=== PATIENT | female | born 1965 | race Caucasian/White ===

== ENCOUNTER → 2017-01-27 | Outpatient (CLI) | payer OTHER ==
[~2017-01-27] MED LIST: ACETAMINOPHEN PO; ALBUTEROL20 ml INH; AMITRYPTYLINE; AMOXICILLIN PO; APRESOLINE; ASPIRIN81 MG; ASPIRIN81 MG PO; AVAPRO PO; BENADRYL25 M1; BENADRYL25 M1 PO; BREO ELLIPTA 21 EACH; CATAPRES0.3 MG; CELEXA20 MG; CLONIDINE HCL0.3 MG PO; CLONIDINE PO; DOCU SOFT100 M1 PO; FLONASE ALLERG9.9 ML; GABAPENTIN400 MG PO; GABAPENTIN800 MG PO; HYDRALAZINE HCL25 MG PO; IBUPROFEN200 M1; K-DUR10 MEQ PO; KLONOPIN1 MG; LOPRESSOR PO; MAXZIDE 75-501 EACH; METOPROLOL SUC100 MG PO; MILK OF MAGNESIA PO; MOBIC15 MG PO; MOTRIN600 M1 PO; NAMENDA5 MG PO; NEPHROCAPS1 CAP; NEURONTIN; NICOTINE PATCH1 BOX TD; OXYCODONE HCL10 M1 PO; PAROXETINE HCL20 MG PO; PEPCID AC20 M2 PO; PROTONIX PO; SIMVASTATIN20 MG PO; SYMBICORT 160/4.6 G1 INH; TOPROL XL100 MG; TRAMADOL HCL50 M1; TRIAMTERENE-HC1 EACH PO; VITAMIN B122500 MCG; VITAMIN D250000 UNIT PO; ZANAFLEX4 M1 PO; ZANTAC PO; ZOCOR10 MG PO
--- NOTE | ~2017-01-27 | MY6 ---
[facility] A Service of [facility] & [facility] RADIOLOGY TEXT RESULTS PATIENT: JAMMIE CHANCE LOCATION: [facility] : 63 UNIT #: [id number] AGE: [address]: Ismael Todd MD SEX: F ORDER DR: [id number] [facility] [address] [place], [place] [address] [id number] O MR#: [id number] Acc #: [id number] NAME: JAMMIE CHANCE : 1965 SEX: F STUDY DATE/TIME: 01/27/2017 10:54 UNIT: [facility] ROOM: STUDY DESCRIPTION: MY Mammogram Dx Dig Jarett Attending Physician: Ismael Todd M.D. Ordering Physician: Ismael Todd M.D. Primary Care Physician: Ismael Todd M.D. MEDICAL IMAGING REPORT This report is preliminary unless electronic signature is present EXAM Bilateral digital diagnostic mammogram. COMPARISON Left diagnostic mammogram dated March 10, 2016, September 08, 2015, and screening mammogram dated August 07, 2015. INDICATION 52-year-old female with 4 probably benign clusters of left breast microcalcifications. 6-month followup was recommended but the patient is just now returning for followup. FINDINGS Spot magnification ML and CC views were obtained in addition to full field bilateral CC and MLO views. There are scattered fibroglandular densities. There are 2 clusters of round and punctate microcalcifications in the 12 o'clock posterior third of the left breast, as well as a separate cluster of 11 o'clock posterior third round and punctate microcalcifications. These are stable. There are also stable round and punctate microcalcifications in the 9 o'clock middle third of the left breast. There are no suspicious findings in the right breast. IMPRESSION 1. No mammographic evidence of malignancy in the right breast. 2. 4 stable probably benign clusters of left breast microcalcifications. Follow up left diagnostic mammogram is recommended in 6 months to document overall 2-year stability. Findings and recommendations were discussed with the patient upon termination of today's exam. Patients over the age of 40 are entered into a reminder system with target due date for the next mammogram. A result letter will also be sent to the patient. [facility] A Service of [facility] & [facility] RADIOLOGY TEXT RESULTS PATIENT: JAMMIE CHANCE LOCATION: [facility] : 63 UNIT #: [id number] AGE: [address]: Ismael Todd MD SEX: F ORDER DR: BIRADS: 3 Probably benign finding; short interval follow-up suggested. Dictated by... Jake Melendrez M.D. THIS IS AN ELECTRONICALLY VERIFIED REPORT Jake Melendrez M.D. at 01/30/2017 9:24 AM HUBERT/howard TD: 01/27/2017 15:25 JOB #: [id number] MEDICAL IMAGING REPORT COPY
== END | disposition home or self-care (01) ==
LOC: CMAM 10:15
DX: R92.0 Mammographic microcalcification found on diagnostic imaging of breast (principal); R92.1 Mammographic calcification found on diagnostic imaging of breast
CPT/HCPCS: G0204

== ENCOUNTER → 2017-02-27 | Outpatient (CLI) | payer OTHER ==
--- NOTE | ~2017-02-27 | US37 ---
[facility] A Service of [facility] RADIOLOGY TEXT RESULTS PATIENT: JAMMIE CHANCE LOCATION: [facility] : 63 UNIT #: [id number] AGE: [address]: VERONICA AYERS APRN SEX: F ORDER DR: [id number] [facility] [address] [place], [place] [address] [id number] O MR#: [id number] Acc #: [id number] NAME: JAMMIE CHANCE. : 1965 SEX: F STUDY DATE/TIME: 02/27/2017 10:33 UNIT: [facility] ROOM: STUDY DESCRIPTION: US Carotid W/Doppler Bilateral Attending Physician: Veronica Ayers Aprn Referring Physician: Veronica Ayers Aprn Ordering Physician: Veronica Ayers Aprn Primary Care Physician: Ismael Todd M.D. MEDICAL IMAGING REPORT This report is preliminary unless electronic signature is present EXAM Bilateral carotid duplex DATE OF EXAMINATION 02/27/2017 HISTORY Atherosclerosis. FINDINGS High resolution B-mode and duplex imaging of the carotid arteries was performed. The right common carotid artery is patent. The right internal and external carotid arteries are patent with no significant plaque. Velocity in the right common carotid is 61, internal is 62, and external is 76 cm/sec. Right ICA/CCA Ratio is 1.6. On the left side the left common, internal and external carotid arteries are patent with no significant plaque. Velocity in the left common carotid is 74, internal is 58, and external is 98 cm/sec. Left ICA/CCA Ratio is 1.3. Antegrade flow is seen in the right and left vertebral arteries. IMPRESSION No significant plaque or stenosis is seen in the right or left internal carotid arteries. Antegrade flow is seen in the right and left vertebral arteries. Dictated by... Ismael Dexter M.D. THIS IS AN ELECTRONICALLY VERIFIED REPORT [facility] A Service of [facility] RADIOLOGY TEXT RESULTS PATIENT: JAMMIE CHANCE LOCATION: [facility] : 63 UNIT #: [id number] AGE: [address]: VERONICA AYERS, LETTY SEX: F ORDER DR: Ismael Dexter M.D. at 03/06/2017 8:36 AM Dariana TD: 02/27/2017 14:55 JOB #: [id number] MEDICAL IMAGING REPORT Page 1 of 1 COPY
== END | disposition home or self-care (01) ==
LOC: CNIV 10:09
DX: I65.23 Occlusion and stenosis of bilateral carotid arteries (principal)
CPT/HCPCS: 93880

== ENCOUNTER → 2017-03-08 | Day surgery (SDC) | payer OTHER ==
--- NOTE | ~2017-03-08 | OR ---
Unit #: [id number] #: [id number] Patient: JAMMIE CHANCE [id number] [address] [address] [id number] O MR#: [id number] NAME: JAMMIE CHANCE. ROOM: Date of Procedure: 03/08/2017 Admission Date: 03/08/2017 Surgeon: Dilshad Jiang M.D. : 1965 Attending Physician: Dilshad Jiang M.D. Primary Care Physician: sImael Todd M.D. OPERATIVE REPORT PROCEDURE PERFORMED Colonoscopy to cecum. INDICATIONS FOR PROCEDURE The patient with average risk for colorectal cancer, undergoing colonoscopy for evaluation. MEDICATIONS Monitored anesthesia. POSTOPERATIVE FINDINGS 1. Normal exam. 2. Good prep. PLAN Repeat colonoscopy in 10 years. DESCRIPTION OF PROCEDURE The patient was explained of the procedure, risks, and benefits along with risks and benefits of anesthesia. She was brought to the endoscopy room. Propofol anesthesia was given. Rectal exam was done, which was normal. Colonoscope was lubricated, passed up the rectum, advanced under direct vision all the way to the cecum. Cecum was identified by ileocecal valve and appendiceal orifice. I then started to pull the scope out carefully looking. No polyps, masses, or colitis was seen. Mucosa was normal and healthy. I retroflexed in the rectum, small hemorrhoids seen. Scope was gently pulled out. She tolerated it well. No major complications were seen. Dictated by... Mimi Wilson/amie TD: 03/08/2017 22:34 JOB #: [id number] CC: . Unit #: [id number] #: [id number] Patient: JAMMIE CHANCE OPERATIVE REPORT Page 1 of 1 X Dilshad Jiang MD X PROCEDURE OPERATIVE NOTE
== END | disposition home or self-care (01) ==
LOC: COPS 08:51
DX: Z12.11 Encounter for screening for malignant neoplasm of colon (principal); K64.9 Unspecified hemorrhoids; J44.9 Chronic obstructive pulmonary disease, unspecified; I10 Essential (primary) hypertension; I73.9 Peripheral vascular disease, unspecified; E78.5 Hyperlipidemia, unspecified; F17.210 Nicotine dependence, cigarettes, uncomplicated; Z87.19 Personal history of other diseases of the digestive system; Z88.2 Allergy status to sulfonamides; Z88.5 Allergy status to narcotic agent; Z88.6 Allergy status to analgesic agent; Z79.82 Long term (current) use of aspirin; Z79.899 Other long term (current) drug therapy
CPT/HCPCS: 84703; J2250